=== PATIENT | male | born 1990 | race Caucasian/White ===

== ENCOUNTER 2021-10-26 07:04 | Outpatient (CLI) | payer OTHER | END 2021-10-26 07:05 | disposition home or self-care (01) | LOC: BICULT 07:04 | PROVIDERS: ATTEND Family Medicine | DX: R74.01 Elevation of levels of liver transaminase levels (principal) | CPT/HCPCS: 76705 ==

== ENCOUNTER 2023-03-17 10:53 | Outpatient (CLI) | payer OTHER ==
[2023-03-17 13:05] LABS: #Eosinphils 0.3 10x3/uL (0.0-0.5); #Monocytes 0.5 10x3/uL (0.0-1.1); #Neutrophils 2.5 10x3/uL (1.5-8.4); %Basophils 0.5 % (0.0-2.0); %Eosinophils 4.2 % (0.0-6.0); %Lymphocytes 47.6 % (18.0-47.0); %Monocytes 7.8 % (0.0-10.0); %Neutrophils 39.6 % (40.0-75.0); Hemoglobin 15.2 g/dL (13.5-17.5); Mean Corpuscular HGB CONC 33.3 g/dL (32.0-36.0); Mean Corpuscular Hemoglobin 29.7 pg (27.0-33.0); Mean Corpuscular Volume 89.4 fl (81.2-95.1); Mean Platelet Volume 10.1 fl (7.4-10.4); Platelet Count 328 10x3/uL (150-450); RBC Distribution Width 11.9 % (11.5-14.5); Red Blood Cell (RBC) Count 5.11 10x6/uL (4.32-5.72); White Blood Cell (WBC) Count 6.4 10x3/uL (3.5-10.5)
== END 2023-03-17 10:54 | disposition home or self-care (01) ==
LOC: LABBT 10:53
PROVIDERS: ATTEND Orthopaedic Surgery Hand Surgery
DX: Z01.812 Encounter for preprocedural laboratory examination (principal); D23.61 Other benign neoplasm of skin of right upper limb, including shoulder
CPT/HCPCS: 85025

== ENCOUNTER 2023-03-18 05:45 | Day surgery (SDC) | payer OTHER ==
[2023-03-17 11:38] VITALS: BMI 31.1
[2023-03-18] MEDS ORDERED: Bupivacaine PF 0.5% 30 ML VIAL ONE (06:12)
[2023-03-18] MEDS ORDERED: Neomycin-Polymyxin 1 ML AMP ONE (06:13)
[2023-03-18] MEDS ORDERED: Bacitracin Zinc Ointment 30 gm TUBE ONE (06:13)
[2023-03-18] MEDS ORDERED: fentaNYL PF 100 MCG/2 ML SYRINGE ONE (06:36)
[2023-03-18] MEDS ORDERED: Sevoflurane 250 ML INH ANEST BOTTLE ONE (06:37)
[2023-03-18] MEDS ORDERED: Sodium Chloride 0.9% 100 ML ONE (06:57)
[2023-03-18] MEDS ORDERED: Midazolam HCl 2 mg/2 ml Vial ONE (06:57)
[2023-03-18] MEDS ORDERED: CEFAZOLIN 2 GM VIAL ONE (06:57)
[2023-03-18] MEDS ORDERED: PROPOFOL 200 MG/20 ML VIAL ONE (07:21)
[2023-03-18] MEDS ORDERED: Lidocaine 1% PF 5 ML VIAL ONE (07:21)
[2023-03-18] MEDS ORDERED: Ketorolac Tromethamine 30 MG/ML VIAL ONE ×2 (07:21→08:07)
[2023-03-18] MEDS ORDERED: Ondansetron PF 4 MG/2 ML Vial ONE (07:21)
[2023-03-18] MEDS ORDERED: Dexamethasone 20 MG/5 ML VIAL ONE (07:21)
== END 2023-03-18 09:33 | disposition home or self-care (01) ==
LOC: SDC 05:45
PROVIDERS: ATTEND Orthopaedic Surgery Hand Surgery
PROC: 0JBJ0ZZ Excision of Right Hand Subcutaneous Tissue and Fascia, Open Approach (ICD-10-PCS; principal; 2023-03-18)
DX: I82.601 Acute embolism and thrombosis of unspecified veins of right upper extremity (principal); E78.00 Pure hypercholesterolemia, unspecified; I10 Essential (primary) hypertension; G47.33 Obstructive sleep apnea (adult) (pediatric); F17.220 Nicotine dependence, chewing tobacco, uncomplicated; Z79.899 Other long term (current) drug therapy
CPT/HCPCS: 88304; J1100; J1885; J2250; J2405; J2704; J3490; S0020